=== PATIENT | female | born 1955 | race Caucasian/White ===

== ENCOUNTER → 2016-12-16 | Outpatient (CLI) | payer MEDICARE, OTHER ==
[~2016-12-16] MED LIST: REGADENOSON 0.4 MG/5 ML SYRINGE IV ONE
--- NOTE | 2016-12-16 11:39 | EST ---
DATE OF SERVICE: 12/16/2016 AGE: 61Y SEX: F HT: 5'6" WT: 150 lbs. Protocol Jose David: Other: Lexiscan Cardiolite Stage: Dur. of Exercise: *Heart Rate Blood Pressure *Rest: 68 Rest: 151/80 * *Max. Achieved: 108 Maximum BP: 227/99 85% PMHR: 133 100% PMHR: 157 *METS: INDICATIONS: Angina pectoris. MEDICATIONS: Patient was given Lexiscan injection over a period of 15 seconds. Peak heart rate of 108 was achieved. Maximum blood pressure of 227/99 mmHg was noted. Resting EKG shows normal sinus rhythm with normal MO interval and QRS duration and normal ST-T waves. No ST segment depression suggestive of ischemia is noted. The results of the nuclear study will follow.
--- NOTE | 2016-12-16 12:30 | NM ---
EXAMINATION TYPE: NM stress lexiscan cardiolite DATE OF EXAM: 12/16/2016 COMPARISON: 03/08/2012 HISTORY: Angina TECHNIQUE: After the intravenous administration of 10.8 mCi Tc 99m Sestamibi - Cardiolite resting SP ECT images acquired 50 minutes post injection. The patient received 0.4mg Lexiscan, 27.2 mCi Tc 99m Sestamibi - Stress images obtained [address] injection FINDINGS: Review of stress and rest SPECT images demonstrates fixed defect involving the anterolateral and ant eroapical portion of the myocardium. Corresponding wall motion abnormality. Gated analysis shows nor mal wall motion with an estimated left ventricular ejection fraction of 49 %. IMPRESSION: Predominantly fixed defect suggestive of previous infarction involving the anterior wall, apical ante rolateral portions of the myocardium. Small area of stress-induced reversible ischemia involving the anterior apical myocardium ingested. Correlate clinically.
== END | disposition home or self-care (01) ==
LOC: RADNMMAIN 09:02
PROVIDERS: ATTEND Family Medicine
DX: I20.9 Angina pectoris, unspecified (principal)
CPT/HCPCS: 93017; 78452; A9500; J2785

== ENCOUNTER 2017-03-24 11:14 | Day surgery (SDC) | payer MEDICARE, OTHER ==
[~2017-03-24 11:14] MED LIST changes: +ALPRAZolam 0.25 MG TAB PO PRN; +ASPIRIN 325 MG TAB PO STA; +ATORVASTATIN 80 MG TAB PO STA; +NITROGLYCERIN SL TABS 0.4 MG TAB SUBLINGUAL PRN; -REGADENOSON 0.4 MG/5 ML SYRINGE IV ONE; +SODIUM CHLORIDE 0.9% 1,000 ML in EMPTY BAG 1 BAG IV ONE
[2017-03-24] MEDS ORDERED: LIDOCAINE 2% INJ 20 MG/ML (20 ML MDV) ONE (12:23)
[2017-03-24] MEDS ORDERED: fentaNYL (PF) 50 MCG/ML 2 ML AMP ONE (12:23)
[2017-03-24] MEDS ORDERED: MIDAZOLAM 2 MG/2 ML VIAL ONE (12:23)
[2017-03-24] MEDS ORDERED: fentaNYL (PF) 50 MCG/ML 2 ML AMP IV ONE ×2 (12:39)
[2017-03-24] MEDS: MIDAZOLAM 2 MG/2 ML VIAL IV ONE ×2 (12:40→12:43)
[2017-03-24] MEDS ORDERED: LIDOCAINE 2% INJ 20 MG/ML SQ ONE (12:56)
[2017-03-24] MEDS ORDERED: IOHEXOL 350 MG/ML 125ML BOTTLE INJ ONE (13:16)
[2017-03-24] MEDS ORDERED: RX INFO: IV CONTRAST WAS GIVEN 1 EACH MISC MISCELLANE PRN (13:24)
[2017-03-24] MEDS: SODIUM CHLORIDE 0.9% 1,000 ML IV SCH (16:28)
[2017-03-24] MEDS: HYDROmorphone 1 MG/ML 1 ML SYRINGE IVP PRN (17:17)
[2017-03-24] MEDS ORDERED: PROMETHAZINE 25 MG TAB PO PRN (20:12)
[2017-03-24] MEDS ORDERED: VENLAFAXINE HCL 50 MG TAB PO SCH (21:00)
[2017-03-24] MEDS ORDERED: GLYCOPYRROLATE 1 MG TAB PO SCH (21:00)
[2017-03-24] MEDS: GABAPENTIN 300 MG CAP PO SCH (21:06)
[2017-03-24] MEDS: CILOSTAZOL 100 MG TAB PO SCH (21:06)
[2017-03-24] MEDS: ALPRAZolam 0.5 MG TAB PO PRN (21:07)
[2017-03-24] MEDS: MAGNESIUM OXIDE 400 MG TAB PO SCH (21:07)
[2017-03-24] MEDS: PANTOPRAZOLE 40 MG TABLET PO SCH (21:07)
[2017-03-25] MEDS: HYDROmorphone 1 MG/ML 1 ML SYRINGE IVP PRN ×2 (02:08→06:39)
[2017-03-25] MEDS: SODIUM CHLORIDE 0.9% 1,000 ML IV SCH (02:09)
[2017-03-25] MEDS ORDERED: LEVOTHYROXINE 25 MCG TAB PO SCH (06:00)
[2017-03-25] MEDS: ALPRAZolam 0.5 MG TAB PO PRN (06:08)
[2017-03-25 07:59] VITALS: BP 124/70; PULSE 73; RESP 18; TEMP 98.5
[2017-03-25] MEDS: CILOSTAZOL 100 MG TAB PO SCH (08:40)
[2017-03-25] MEDS: GABAPENTIN 300 MG CAP PO SCH (08:40)
[2017-03-25] MEDS: PANTOPRAZOLE 40 MG TABLET PO SCH (08:41)
[2017-03-25] MEDS: MAGNESIUM OXIDE 400 MG TAB PO SCH (08:41)
[2017-03-25] MEDS ORDERED: amLODIPine 5 MG TAB PO SCH (09:00)
--- NOTE | 2017-03-25 10:28 | PN ---
PROGRESS NOTE The patient underwent a cardiac catheterization yesterday. Patient was found to have normal coronary arteries. Patient does have a significant peripheral vascular disease. She had complaints of epigastric pain last evening. EKG was normal. Patient is feeling better now. Her right foot is warm. Her Doppler pulses were obtained in the right groin. Patient was reassured. We will continue the current medications. She is advised to stop smoking. After she is seen in the office, she will be referred to Dr. Armendariz for evaluation of her peripheral arterial disease. MMODL / IJN: [id number] /
--- NOTE | 2017-07-27 16:09 | CC ---
CARDIAC CATHETERIZATION REPORT DESCRIPTION OF PROCEDURE: 03/25/17 This patient has a known history of peripheral vascular disease. Has been having chest pain on and off suggestive of angina. Patient had a positive stress test. In view of that, the patient was advised cardiac catheterization for definitive diagnosis. PROCEDURE: The patient right femoral pulse was very weak. The right femoral artery was entered with Doppler assistance and #6-Z[place] sheath was placed in. Then subsequently left heart catheterization was performed. Right femoral angiogram was obtained which showed significant peripheral vascular disease involving the common femoral and superficial femoral artery. The patient tolerated the procedure well. Sheath was removed and good hemostasis was achieved with manual compression. SELECTIVE CORONARY ANGIOGRAPHY: Left main coronary artery is normal and patent. LAD gives rise to a small size diagonal branch. LAD and its branches are normal. Circumflex coronary artery is normal. Right coronary artery is normal. FINAL IMPRESSION: 1. This study reveals normal coronary arteries. 2. The patient has severe peripheral vascular disease. Patient will be evaluated by Dr. Armendariz as an outpatient. At the end of the procedure there was a good Doppler signal obtained in the right femoral artery as well as both feet were warm. MMODL / IJN: [id number] /
== END 2017-03-25 10:25 | disposition home or self-care (01) ==
LOC: CATHCVL 11:14 → 3OBS 13:11 → CATHCVL 03-25 10:25
PROVIDERS: ATTEND Internal Medicine Cardiovascular Disease
DX: R07.9 Chest pain, unspecified (principal); I10 Essential (primary) hypertension; I73.9 Peripheral vascular disease, unspecified; Z87.891 Personal history of nicotine dependence; Z79.82 Long term (current) use of aspirin; Z79.891 Long term (current) use of opiate analgesic; Z79.899 Other long term (current) drug therapy; Z88.6 Allergy status to analgesic agent
CPT/HCPCS: 93458; 85379; 84484; 99152; 99153; C1769 ×2; C1894; J2001; J2250; J3010; J1170 ×2; Q9967

== ENCOUNTER 2017-07-29 09:26 | Day surgery (SDC) | payer MEDICARE, OTHER ==
[2017-07-22 10:30] VITALS: BMI 24.2
[~2017-07-29 09:26] MED LIST changes: -ALPRAZolam 0.25 MG TAB PO PRN; +ASPIRIN 325 MG TAB PO ONE; -ASPIRIN 325 MG TAB PO STA; -ATORVASTATIN 80 MG TAB PO STA; -NITROGLYCERIN SL TABS 0.4 MG TAB SUBLINGUAL PRN
[2017-07-29] MEDS ORDERED: ALPRAZolam 0.25 MG TAB ONE (09:41)
[2017-07-29] MEDS ORDERED: ALPRAZolam 0.25 MG TAB PO STA (09:42)
[2017-07-29] MEDS ORDERED: SODIUM CHLORIDE 0.9% 1,000 ML IV ONE (10:00)
[2017-07-29] MEDS: MIDAZOLAM 2 MG/2 ML VIAL IVP ONE ×4 (11:17→13:36)
[2017-07-29] MEDS ORDERED: LIDOCAINE 2% INJ 20 MG/ML SQ ONE (11:36)
[2017-07-29] MEDS: HYDROmorphone 2 MG/ML 1 ML SYRINGE IVP ONE ×4 (11:40→14:22)
[2017-07-29] MEDS: HEPARIN SODIUM 1,000 UN/ML (10ML VL) IV ONE ×2 (11:45→13:03)
[2017-07-29 11:59] LABS: Basophils % (A) 1 %; Eosinophils # (A) 0.5 k/uL (0-0.7); Eosinophils % (A) 7 %; HCT 38.7 % (34.0-46.0); HGB 12.4 gm/dL (11.4-16.0); Lymphocytes # (A) 2.6 k/uL (1.0-4.8); Lymphocytes % (A) 39 %; MCH 28.4 pg (25.0-35.0); MCHC 31.9 g/dL (31.0-37.0); Mean Platelet Volume 6.6; Monocytes # (A) 0.3 k/uL (0-1.0); Monocytes % (A) 5 %; Neutrophils # (A) 3.1 k/uL (1.3-7.7); Neutrophils % (A) 47 %; Platelet Count 343 k/uL (150-450); RBC 4.35 m/uL (3.80-5.40); RDW 13.2 % (11.5-15.5); WBC 6.6 k/uL (3.8-10.6)
[2017-07-29 12:26] LABS: AST 21 U/L (14-36); Albumin 3.5 g/dL (3.5-5.0); Alkaline Phosphatase 110 U/L (38-126); Blood Urea Nitrogen 11 mg/dL (7-17); Carbon Dioxide 26 mmol/L (22-30); Chloride 109 mmol/L (98-107); Glucose 92 mg/dL (74-99); Total Bilirubin 0.3 mg/dL (0.2-1.3); Total Protein 6.6 g/dL (6.3-8.2)
[2017-07-29 12:35] LABS: ALT 25 U/L (9-52); Anion Gap 7 mmol/L; Potassium 3.8 mmol/L (3.5-5.1); Sodium 142 mmol/L (137-145)
[2017-07-29] MEDS ORDERED: CLOPIDOGREL 75 MG TAB PO ONE (13:49)
[2017-07-29] MEDS ORDERED: IODIXANOL 320 MG/ML 100 ML INTRAARTER ONE (14:02)
[2017-07-29] MEDS ORDERED: PROMETHAZINE 25 MG TAB PO PRN (14:06)
[2017-07-29] MEDS ORDERED: SODIUM CHLORIDE 0.9% 1,000 ML IV SCH (14:15)
--- NOTE | 2017-07-29 14:39 | IR ---
Fluoroscopy HISTORY: Peripheral vascular occlusive disease 54.4 minutes fluoroscopy time supplied to the referring clinician. 743 intraoperative C-arm images d ocument the procedure. See dictated report from cardiology.
[2017-07-29] MEDS ORDERED: HYDROmorphone 2 MG/ML 1 ML SYRINGE IVP PRN (15:41)
[2017-07-29] MEDS ORDERED: PROMETHAZINE 25 MG TAB PO STA (17:58)
[2017-07-29] MEDS ORDERED: HYDROmorphone 2 MG/ML 1 ML SYRINGE IVP STA (18:02)
--- NOTE | 2017-07-29 18:13 | LTR ---
DATE OF SERVICE: July 29, 2017. Dear Dr. Muhammad: Ms. Maribell Jacobsen underwent successful balloon angioplasty and opening of bilateral iliac arteries with good angiographic results and without any complication. Thank you for allowing me to participate in her care and please do not hesitate to call if you have any questions or concerns. Sincerely, MMODL / IJN: [id number] /
--- NOTE | 2017-07-29 18:49 | AN ---
ANGIOGRAPHY REPORT DATE OF SERVICE: July 29, 2017 PERFORMING PHYSICIAN: Ellis Armendariz MD, cashier general. PROCEDURE PERFORMED: 1. Selective bilateral common iliac arteries angiogram. 2. Selective bilateral external iliac arteries angiogram. 3. Successful stenting of the right common iliac artery using 8.0 x 39 mm balloon expandable stent with good angiographic results. 4. Successful stenting of the left external iliac artery using 8.0 x 60 and 9.0 x 40 self expandable stent with good angiographic results. 5. Successful stenting of the left common iliac artery using 8.0 x 59 mm balloon expandable stent with good angiographic results. INDICATION: This is a pleasant 62-year-old female patient who sees Dr. 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 She was brought today to undergo an intervention. APPROACH: Right common femoral artery and left common femoral artery. COMPLICATION: None LEVEL OF SEDATION: Moderate with sedation length of 2 hours and 25 minutes. PROCEDURE DESCRIPTION: After obtaining informed consent, the patient was brought to the cardiac cardiac cath lab technologist. The right common femoral artery was cannulated using micropuncture technique, the micropuncture wire passed easily, then I placed a 23 cm 6-[place] sheath in the right common femoral artery. Subsequently I did start anticoagulation using heparin with a bolus and continuous monitoring the ACT throughout the procedure. The patient did receive additional 3000 of heparin during the procedure. Subsequently I did across the critical lesion of the right common iliac artery using an Glidewire and I did balloon angioplasty using 6 mm balloon. Subsequently, I deployed 8.0 x 39 mm balloon expandable stent where the stent was positioned under fluoroscopy guidance and deployed under its nominal pressure with the following angiogram showing good angiographic results. After that, I did access the left common femoral artery using micropuncture technique under ultrasound guidance, the micropuncture wire passed easily, then I placed a 23 cm 6-[place] sheath in the left common femoral artery. 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 I again did in the subintimal space. I was able to cross the chronic total occlusion coming from the right side and in antegrade technique. I was able to advance the 035 glidewire to the left common femoral artery from the right side. After that, I did balloon angioplasty initially using 4.0 balloon and subsequently 6.0 balloon. Then for the lesion in the left external iliac artery, I did deploy 2 self expandable stents. The 1st stent was 8.0 x 59 and the 2nd was 9.0 x 40. After that, for the lesion in the left common iliac artery, I did deploy 8.0 x 60 mm balloon expandable stent where the stent was positioned under fluoroscopy guidance and deployed under its nominal pressure. Then the self expandable stents segment, I did balloon angioplasty to and postdilatation using the 8 mm balloon expandable stent. The following angiogram showed good angiographic results without perforation and without dissection with good pulses in both femoral arteries. I did after that exchange my 23 cm Brite Tip sheath into 11 cm 6-Ukrainian sheath. The procedure was completed without any complication. POSTPROCEDURE MANAGEMENT: 1. Dual anti-platelet therapy. 2. Risk factor modifications. 3. Follow up with the patient. MMODL / IJN: [id number] /
[2017-07-29 19:12] VITALS: RESP 18
[2017-07-29] MEDS: GABAPENTIN 300 MG CAP PO SCH ×2 (20:23→20:24)
[2017-07-29] MEDS: MAGNESIUM OXIDE 400 MG TAB PO SCH (20:24)
[2017-07-29] MEDS: PANTOPRAZOLE 40 MG TABLET PO SCH (20:24)
[2017-07-29] MEDS: VARENICLINE 1 MG TAB PO SCH (20:24)
[2017-07-29] MEDS: CILOSTAZOL 100 MG TAB PO SCH (20:24)
[2017-07-29] MEDS ORDERED: VENLAFAXINE HCL 50 MG TAB PO SCH (21:00)
[2017-07-29] MEDS: MORPHINE SULFATE IR 15 MG TABLET PO SCH (21:19)
[2017-07-29] MEDS ORDERED: ONDANSETRON 4 MG/2 ML VIAL IVP PRN (22:57)
[2017-07-29 23:50] VITALS: TEMP 96.9
[2017-07-30] MEDS: PANTOPRAZOLE 40 MG TABLET PO SCH (06:15)
[2017-07-30] MEDS ORDERED: LEVOTHYROXINE 25 MCG TAB PO SCH (06:30)
[2017-07-30] MEDS: VARENICLINE 1 MG TAB PO SCH (07:58)
[2017-07-30] MEDS: CILOSTAZOL 100 MG TAB PO SCH (07:59)
[2017-07-30] MEDS: GABAPENTIN 300 MG CAP PO SCH (07:59)
[2017-07-30] MEDS: MORPHINE SULFATE IR 15 MG TABLET PO SCH (07:59)
[2017-07-30] MEDS: MAGNESIUM OXIDE 400 MG TAB PO SCH (07:59)
[2017-07-30 08:07] VITALS: BP 127/92; PULSE 106
[2017-07-30] MEDS ORDERED: ASPIRIN 325 MG TAB PO SCH (09:00)
[2017-07-30] MEDS ORDERED: ATORVASTATIN 80 MG TAB PO SCH (09:00)
[2017-07-30] MEDS ORDERED: CLOPIDOGREL 75 MG TAB PO SCH (09:00)
[2017-07-30] MEDS ORDERED: amLODIPine 5 MG TAB PO SCH (09:00)
[2017-07-30] MEDS ORDERED: CYANOCOBALAMIN 500 MCG TAB PO SCH (09:00)
--- NOTE | 2017-07-30 10:32 | DS ---
DISCHARGE SUMMARY DATE OF ADMISSION: 07/29/2017 DATE OF DISCHARGE: 07/30/2017 BRIEF HISTORY: This is a pleasant 62-year-old female patient who sees Dr. Vangie Parkinson in the office as an outpatient who was experiencing bilateral lower extremities intermittent claudication. She underwent peripheral angiogram and that revealed critical right common iliac and occluded left common iliac artery. She was admitted to the hospital yesterday and underwent successful bilateral stenting of both iliac arteries with good angiographic results and without any complication. On follow up with the patient today, she seems to be doing good and she is asymptomatic. She denies having any chest pain or discomfort or difficulty in breathing. The patient is going to be discharged home on dual anti-platelet therapy and statin and I will follow up with the patient as an outpatient in the office. PAULINA / FELICITY: [id number] /
== END 2017-07-30 10:50 | disposition home or self-care (01) ==
LOC: CATHCVL 09:26 → 6SEL 13:59 → CATHCVL 07-30 10:50
PROVIDERS: ATTEND Internal Medicine Interventional Cardiology
DX: I70.213 Atherosclerosis of native arteries of extremities with intermittent claudication, bilateral legs (principal); I70.92 Chronic total occlusion of artery of the extremities; I10 Essential (primary) hypertension; E78.5 Hyperlipidemia, unspecified; Z82.49 Family history of ischemic heart disease and other diseases of the circulatory system; Z79.82 Long term (current) use of aspirin; Z79.890 Hormone replacement therapy; Z79.891 Long term (current) use of opiate analgesic; Z79.899 Other long term (current) drug therapy; Z87.891 Personal history of nicotine dependence; Z88.6 Allergy status to analgesic agent
CPT/HCPCS: 37221 ×2; 37223; 85347; 80053; 82565; 85025; C1773; C1769 ×7; C1894 ×2; C1725 ×2; C1876 ×2; C1887; J2001; J2250; J1170; Q9967; J2405; J1644